=== PATIENT | male | born 1980 | race Caucasian/White ===

== ENCOUNTER 2018-09-04 08:22 | Outpatient (CLI) | payer OTHER ==
[~2018-09-04] VITALS: Ht 180.3 cm; Wt 109.8 kg
== END 2018-09-04 09:09 | disposition home or self-care (01) ==
LOC: PREOP 08:22
PROVIDERS: ATTEND Podiatrist Foot & Ankle Surgery
DX: Z01.818 Encounter for other preprocedural examination (principal)
CPT/HCPCS: 87081

== ENCOUNTER 2018-09-09 09:57 | Day surgery (SDC) | payer OTHER ==
[~2018-09-09] VITALS: Ht 180.3 cm; Wt 109.8 kg
[2018-09-09 09:55] VITALS: BP 120/99
[2018-09-09] MEDS ORDERED: ceFAZolin INJECTION 1,000 MG in NS (IVPB) 50 ML IV ONE (10:15)
[2018-09-09] MEDS: LACTATED RINGERS 1,000 ML IV PRN ×2 (10:30→13:34)
[2018-09-09] MEDS ORDERED: BUPIVACAINE 0.5% 30 ML (SENSORCAINE) VIAL ONE (11:02)
[2018-09-09] MEDS ORDERED: MIDAZOLAM 2 MG/2 ML (VERSED) VIAL ONE (11:12)
[2018-09-09] MEDS ORDERED: fentaNYL INJECTION 100 MCG/2 ML AMP ONE ×2 (11:12→13:36)
[2018-09-09] MEDS ORDERED: LIDOCAINE PF 2% 5 ML (XYLOCAINE) VIAL ONE (11:13)
[2018-09-09] MEDS ORDERED: proPOfol 200 MG/20 ML (DIPRIVAN) VIAL IV ONE (11:13)
[2018-09-09] MEDS ORDERED: DEXAMETHASONE 10 MG/ML (DECADRON) 1 ML VIAL ONE ×2 (11:13→14:22)
[2018-09-09] MEDS ORDERED: ONDANSETRON 4 MG/2 ML (SDV) Z0FRAN ONE ×2 (11:13→14:49)
[2018-09-09] MEDS ORDERED: SEVOFLURANE (ULTANE) 15 ML INHAL SOLN ONE ×12 (11:48→14:49)
--- NOTE | 2018-09-09 11:51 | Progress Note-Pre Operative ---
Pre-Operative Progress Note H&P Reviewed The H&P was reviewed, patient examined and no changes noted. Date Seen by Provider: Sep 09, 2018 Time Seen by Provider: 11:50 Date H&P Reviewed: Sep 09, 2018 Time H&P Reviewed: 11:50 Pre-Operative Diagnosis: Hallux Valgus left GEETA TUCKER DPM Sep 09, 2018 11:50 am
--- NOTE | 2018-09-09 14:43 | Diagnostic Imaging Report ---
INDICATION: Left foot surgery. FINDINGS: Fluoroscopy was provided in OR during left bunionectomy. 24 seconds of fluoroscopy was utilized. Images demonstrate plate and screws at the proximal aspect of the first metatarsal and medial cuneiform. Screws appear to extend into the middle cuneiform. IMPRESSION: Fluoroscopy for left foot surgery. Dictated by: Dictated on workstation # [id number]
[2018-09-09] MEDS ORDERED: ESMOLOL 100 MG/10 ML (BREVIBLOC) VIAL ONE (14:50)
[2018-09-09] MEDS ORDERED: LACTATED RINGERS 1,000 ML IV SCH (15:05)
--- NOTE | 2018-09-09 15:05 | Progress Note-Post Operative ---
Post-Operative Progess Note Surgeon (s)/Pullman Car Clerk (s) Surgeon GEETA TUCKER DPM Pullman Car Clerk: none Pre-Operative Diagnosis Hallux Valgus left Post-Operative Diagnosis same Procedure & Operative Findings Date of Procedure 09/09/18 Procedure Performed/Findings Arthrodesis of the left 1st metatarsal-cuneiform joint, Oren bunionectomy, left Anesthesia Type general Estimated Blood Loss Estimated blood loss (mL): minimal Specimens/Packing Specimens Removed none GEETA TUCKER DPM Sep 09, 2018 3:05 pm
[2018-09-09] MEDS ORDERED: ACHD5005 PO (15:08)
[2018-09-09] MEDS ORDERED: CEPH500C PO (15:08)
[2018-09-09] MEDS ORDERED: HYDROcodone/APAP 5 MG/325 MG (LORTAB) TAB PO PRN (15:15)
[2018-09-09] MEDS ORDERED: morphine INJ 10 MG/ML 1ML (SYR OR VIAL) IVP ONE (15:30)
[2018-09-09] MEDS ORDERED: ONDANSETRON 4 MG/2 ML (SDV) Z0FRAN IVP PRN (15:30)
[2018-09-09] MEDS ORDERED: HYDROmorphone 2 MG/ML VIAL (DILAUDID) IV ONE (15:30)
--- NOTE | 2018-09-09 15:31 | Physical Therapy Progress Note ---
Therapy Progress Note Patient in surgery. PT education with parents on crutch use and step climbing. Patient has crutches established per parents. 5 steps into home, parents report their other son will assist patient into home. They are requesting a script for a knee scooter secondary to NWB left LE status. RN is aware. Parents voice understanding on crutch use. BEBE SALGUERO PT Sep 09, 2018 15:31
[2018-09-09 16:00] VITALS: BP 138/100
--- NOTE | 2018-09-09 16:16 | Anesthesia-General Post-Op ---
General Patient Condition Mental Status/LOC: Same as Preop Cardiovascular: Satisfactory Nausea/Vomiting: Absent Respiratory: Satisfactory Pain: Controlled Complications: Absent Post Op Complications Complications None Follow Up Care/Instructions Patient Instructions None needed. Anesthesia/Patient Condition Patient Condition Patient is doing well, no complaints, stable vital signs, no apparent adverse anesthesia problems. No complications reported per nursing. JEREMIAH BECK CRNA Sep 09, 2018 16:16
[2018-09-09 16:30] VITALS: BP 123/81
--- NOTE | 2018-09-09 16:36 | Diagnostic Imaging Report ---
INDICATION: Left foot pain FINDINGS: Two views of the left foot show postop changes from arthrodesis of the first carpometacarpal joint. Fixation hardware appears to be intact. IMPRESSION: Good alignment of the left foot following internal fixation and fusion of the first carpometacarpal joint. The patient also had an osteotomy of the proximal phalanx of the big toe. Dictated by: Dictated on workstation # [id number]
[2018-09-09 17:00] VITALS: BP 124/84
[2018-09-09 17:23] VITALS: BP 124/84
--- NOTE | 2018-09-10 01:05 | OPERATIVE REPORT ---
DATE OF SERVICE: 09/09/2018 SURGEON: Zita Davis DPM. PREOPERATIVE DIAGNOSES: Hallux abductovalgus metatarsal primus varus, left metatarsalgia. POSTOPERATIVE DIAGNOSES: Hallux abductovalgus metatarsal primus varus, left metatarsalgia. PROCEDURE: 1. Arthrodesis to the left first metatarsal cuneiform joint. 2. Oren bunionectomy left. WOUND CLASS: Clean. ANESTHESIA: General. HEMOSTASIS: Pneumatic thigh tourniquet at 300 mmHg. INDICATIONS: This is a 37-year-old male presents complaining of a painful left foot. Conservative therapy has met with unsatisfactory results and the patient is agreeable to surgical intervention. After risks and complications were discussed at length. No guarantees were extended to the patient and he is willing to proceed. DESCRIPTION OF PROCEDURE: The patient was brought back to the operating table, placed in a secure supine position. A general anesthetic was then induced. Appropriate timeout was performed. Pneumatic thigh tourniquet was placed on the left lower extremity over several layers padding. The left foot was then anesthetized with 7 mL of 0.5% Marcaine injecting the Costello block of the left foot. The left foot was then elevated and allowed to exsanguinate after which the tourniquet was inflated to 300 mmHg. Attention was then directed to the medial aspect of the left first metatarsal cuneiform joint area where a 5 cm longitudinal linear incision was created. The incisions were deepened in the same plane with great care to identify and retract all vital neurovascular structures. All the necessary blood vessels were cauterized as encountered. The incision was deepened down to the medial aspect of the first metatarsal cuneiform joint where a subperiosteal dissection was carried out. This exposed the joint space to the first metatarsal cuneiform joint as well as the attachment of the peroneus longus tendon and the tibialis anterior. Only a small portion of these tendon insertions were removed for internal fixation. Next, utilizing power sagittal saw two cuts were created. The first was to the base of the first metatarsal, which was perpendicular to the long axis of the first metatarsal. The second was to the distal aspect of the medial cuneiform, which was perpendicular to the long axis of the second metatarsal. The articular cartilage to the base of the first metatarsal and distal aspect of the medial cuneiform were then removed. The wound was flushed with copious amounts of normal saline. The base of the first metatarsal and medial cuneiform where they were approximated and temporary K-wire fixation utilized. There was a derotation of the first metatarsal with valgus orientation realigning the sesamoidal apparatus. This was confirmed by intraoperative C-arm. Next a standard plantar Lapidus bunionectomy plate was utilized from [employer] with 3.5 screws. The two distal screws were first applied with a 16 inch and 20 mm of length. Now, the interfragmentary screw was then placed from plantar distal to proximal dorsal which was 46 mm in length, which was nonlocking screw. The remainder of the 3.5 screws was locking. The 2 proximal screws were 20 and 35 mm of length. Excellent bony apposition and fixation was appreciated at this time and was confirmed with intraoperative C-arm. The wound was flushed with copious amounts of normal saline. Closure was performed in layers. Deep closure was performed with 3-0 Vicryl, superficial with 4-0 Vicryl, skin closed with 4-0 Prolene in a horizontal mattress type stitch. Attention was then directed to the dorsal aspect of the left first metatarsophalangeal joint where a lateral deviation to the hallux was noted. The dorsal incision was approximately 4 mm in length. The incision was deepened in the same plane with great care to identify and retract all vital neurovascular structures. The all necessary blood vessels were cauterized as encountered. The incision was deepened down to the capsular tissue was just medial to the extensor hallucis longus. A longitudinal capsulotomy was performed. The capsular tissue was reflected noting a large medial eminence of the first metatarsal head, which was resected utilizing power sagittal saw. Attention was then directed to the lateral aspect of the first metatarsophalangeal joint where blunt dissection was given access to the lateral capsule. Lateral capsulorrhaphy was performed as well as a release of the conjoint tendon of the adductor hallucis, the hallux was then forcibly abducted releasing any additional fibers holding it in its abnormal position. Attention was redirected to the left hallux where subperiosteal dissection was carried out to the diaphysis of the proximal phalanx after which a wedge of bone was resected utilizing a power sagittal saw. The lateral cortices were held intact and the base was to the medial aspect of the digit. Two transport pilot holes were created to the dorsal medial aspect of the osteotomy once the wedge of bone was resected. A 28-gauge monofilament wire was passed through the transport pilot hole securing the osteotomy in a closed position realigning the left hallux. Excellent bony apposition and fixation was appreciated at this time. The wound was then closed in layers. Deep closure was performed with 3-0 Vicryl, superficial with 4-0 Vicryl, skin closed with 4-0 Prolene in a horizontal mattress type stitch. Postoperative injection consisted of 13 mL of 0.5% Marcaine plain injected in a local infused to the surgical site. Postoperative injection also included 10 mg dexamethasone into the first intermetatarsal space. Postoperative dressing consisted of Betadine soaked Adaptic, sterile 4 x 4, sterile Kerlix, all secured with a Coban wrap. The patient tolerated the anesthesia and procedure well, was transported from the operating room to the postoperative area with vital signs stable and vascular status intact to all digits of the left foot. He is to follow up in my office in 10 days' period of time, be nonweightbearing left foot. He was given a prescription for Keflex as well as Vicodin. Job ID: [id number] DocumentID: [id number] Dictated Date: 09/09/2018 15:18:10 English Composition Instructor Date: 09/10/2018 01:04:53 Dictated By: JD BARAJAS
== END 2018-09-09 17:23 | disposition home or self-care (01) ==
LOC: SDC 09:57
PROVIDERS: ATTEND Podiatrist Foot & Ankle Surgery
DX: M77.42 Metatarsalgia, left foot (principal); M21.612 Bunion of left foot; E66.9 Obesity, unspecified; Z68.33 Body mass index [BMI] 33.0-33.9, adult
CPT/HCPCS: 73620